=== PATIENT | male | born 1985 | race African-American/Black ===

== ENCOUNTER 2023-05-17 16:12 | Emergency (ER) | payer MEDICAID, OTHER ==
[~2023-05-17] VITALS: Ht 182.9 cm; Wt 68.1 kg
[2023-05-17 16:28] VITALS: BP 122/83; PULSE 85; RESP 17; O2SAT 98
== END 2023-05-18 02:20 | disposition left against medical advice (07) ==
LOC: EDUNIT# 16:12 → EDBD 16:12 → ER 16:12
DX: M25.561 Pain in right knee (principal); M79.632 Pain in left forearm; Z53.21 Procedure and treatment not carried out due to patient leaving prior to being seen by health care provider

== ENCOUNTER 2023-06-04 00:16 | Emergency (ER) | payer MEDICAID ==
[~2023-06-04] VITALS: Ht 175.3 cm; Wt 80.0 kg
[2023-06-04 01:27] LABS: Basophils # (auto) 0.1 10 ^3/uL (0-0.2); Basophils % (auto) 0.9 % (0.0-2.0); Eosinophils # (auto) 0.1 10 ^3/uL (0-0.8); Eosinophils % (auto) 1.1 % (0.0-7.0); Hematocrit 34.8 % (41.0-53.0); Hemoglobin 11.5 g/dL (13.5-17.5); Lymphocytes # (auto) 1.7 10 ^3/uL (0.4-5.4); Lymphocytes % (auto) 14.3 % (10.0-50.0); Mean Corpuscular Hemoglobin 30.4 pg (28.0-32.0); Mean Corpuscular Hgb Conc. 32.9 g/dL (32.0-36.0); Mean Corpuscular Volume 92.4 fL (80.0-100.0); Monocytes # (auto) 1.3 10 ^3/uL (0-1.3); Monocytes % (auto) 11.2 % (0.0-12.0); Neutrophils # (auto) 8.6 10 ^3/uL (1.6-8.6); Neutrophils % (auto) 72.5 % (37.0-80.0); Red Blood Cells 3.77 10^6/uL (4.5-5.90); Red Cell Distribution Width 15.2 % (11.8-14.3); White Blood Cell 11.8 10^3/uL (4.4-10.8)
[2023-06-04 01:48] LABS: Alanine Aminotransferase 34 U/L (7-40); Albumin 4.2 g/dL (3.2-4.8); Alkaline Phosphatase 116 U/L (46-116); Anion Gap 8 (5-15); Aspartate Aminotransferase 28 U/L (13-40); BUN/Creatinine Ratio 17.1 (10.0-20.0); Blood Urea Nitrogen 12 mg/dL (9-23); Carbon Dioxide 25 mmol/L (20-30); Chloride 98 mmol/L (98-107); Glucose 105 mg/dL (74-106); Sodium 131 mmol/L (136-145)
[2023-06-04 01:49] LABS: Total Protein 7.4 g/dL (5.7-8.2)
[2023-06-04 02:25] LABS: INR 1.04 (0.9-1.15); Partial Thromboplastin Time 21.6 SEC (24.5-34.5); Prothrombin Time 10.9 sec (9.3-11.8)
[2023-06-04] MEDS ORDERED: HYDROcodone-ACET 10/325MG TAB PO ONE (06:00)
[2023-06-04 09:31] LABS: Urine Bacteria NONE SEEN /hpf (None Seen); Urine Blood Negative /uL (Negative); Urine Clarity Clear (Clear); Urine Color Yellow (Yellow); Urine Protein, UAD Negative (Negative); Urine Specific Gravity 1.015 (1.001-1.035); Urine WBC 3 /hpf (0 - 3); Urine pH 5.5 (5.0-8.0)
[2023-06-04 09:32] VITALS: BP 133/79; TEMP 98.5
[2023-06-04 09:35] VITALS: PULSE 104; RESP 18; O2SAT 98
== END 2023-06-04 10:41 | disposition home or self-care (01) ==
LOC: EDBD 00:16 → ER 00:16
DX: S82.144A Nondisplaced bicondylar fracture of right tibia, initial encounter for closed fracture (principal); M25.461 Effusion, right knee; F17.210 Nicotine dependence, cigarettes, uncomplicated; F15.90 Other stimulant use, unspecified, uncomplicated; V98.8XXA Other specified transport accidents, initial encounter; Y93.89 Activity, other specified; Y92.89 Other specified places as the place of occurrence of the external cause; Y99.8 Other external cause status
CPT/HCPCS: 36415; 73590; 80053; 81001; 85025; 85610; 85730

== ENCOUNTER 2023-06-05 00:28 | Emergency (ER) | payer MEDICAID ==
[~2023-06-05] VITALS: Ht 175.3 cm; Wt 80.0 kg
[2023-06-05 02:00] VITALS: PULSE 99; RESP 20; O2SAT 96
[2023-06-05] MEDS ORDERED: MORPHINE SULFATE 4 MG/ML SYR/VIAL IM ONE (02:30)
[2023-06-05] MEDS ORDERED: MORPHINE SULFATE INJ 2 MG/ml SYRG IM ONE (12:00)
[2023-06-05] MEDS ORDERED: HYDROcodone-ACET 10/325MG TAB PO ONE (20:00)
[2023-06-06 16:43] LABS: Amphetamine Screen, Urine Neg (NEGATIVE); Barbiturate Scree,Urine Neg (NEGATIVE); Benzodiazephine Screen, Urine Neg (NEGATIVE); Cannabinoid Screen, Urine Pos (NEGATIVE); Cocaine Screen, Urine Neg (NEGATIVE); Opiate Scree,Urine Neg (NEGATIVE); Phencyclidine Screen, Urine Neg (NEGATIVE)
[2023-06-06 19:32] VITALS: PULSE 91; RESP 18; O2SAT 97
[2023-06-06] MEDS ORDERED: HYDROcodone-ACET 10/325MG TAB PO ONE (20:30)
[2023-06-07] MEDS ORDERED: HYDROcodone-ACET 10/325MG TAB PO ONE (03:45)
[2023-06-07 11:25] VITALS: BP 118/64; PULSE 88; RESP 18; TEMP 98; O2SAT 97
== END 2023-06-07 11:45 ==
LOC: ER 00:28
DX: F12.90 Cannabis use, unspecified, uncomplicated (principal); F17.210 Nicotine dependence, cigarettes, uncomplicated; Z00.00 Encounter for general adult medical examination without abnormal findings
CPT/HCPCS: 80307; 96372; 97163; 99285; J2270

== ENCOUNTER 2023-09-21 22:29 | Emergency (ER) | payer MEDICAID ==
[2023-09-21] MEDS ORDERED: HYDROcodone-ACET 10/325MG TAB PO ONE (23:30)
[2023-09-21 23:51] VITALS: BP 137/81; PULSE 111; RESP 18; O2SAT 97
[2023-09-22] MEDS ORDERED: OXY5T GT (00:42)
[2023-09-22] MEDS ORDERED: HYDROmorphone HCL 2 MG/ML VL/or syr IM ONE (00:45)
== END 2023-09-22 00:43 | disposition home or self-care (01) ==
LOC: ER 22:29 → EDBD 22:29 → ER 09-22 00:43
DX: S92.152A Displaced avulsion fracture (chip fracture) of left talus, initial encounter for closed fracture (principal); F17.210 Nicotine dependence, cigarettes, uncomplicated; Z88.8 Allergy status to other drugs, medicaments and biological substances; W18.39XA Other fall on same level, initial encounter; Y93.89 Activity, other specified; Y92.89 Other specified places as the place of occurrence of the external cause; Y99.8 Other external cause status
CPT/HCPCS: 29515; 73610; 73630